=== PATIENT | female | born 1955 | race African-American/Black ===

== ENCOUNTER → 2017-01-21 | Outpatient (CLI) | payer MEDICARE, OTHER ==
[~2017-01-21] MED LIST: AMLO10TA2 PO; AMLO5 PO; ASPI-110 PO; ASPI81 PO; CILO100T PO; CYCL1PAK PO; CYCL1TAB29 PO; GABA300C3 PO; GLUCTAB PO; LISI-363 PO; LISI-515 PO; METF500T PO; METO25 PO; METO25TA3 PO; PRAV40 PO; PRAV40TA2 PO; TRAM50 PO
[2017-01-21 10:20] LABS: ALT (GPT) 11 U/L (10-53); AST (GOT) 12 U/L (15-37)
[2017-01-21 10:22] LABS: HDL CHOLESTEROL 39.9 MG/DL (40.0-60.0); LDL CHOLESTEROL 121 MG/DL (0-99)
[2017-01-21 16:35] LABS: HEMOGLOBIN A1b 2.4 %; HEMOGLOBIN Ao 81.5 %; HEMOGLOBIN LA1C 2.3 %; HEMOGLOBIN P3 4.3 %
== END ==
LOC: CLAB 09:30
PROVIDERS: ATTEND Internal Medicine Interventional Cardiology
DX: E78.5 Hyperlipidemia, unspecified (principal); I10 Essential (primary) hypertension; I25.10 Atherosclerotic heart disease of native coronary artery without angina pectoris; Z79.899 Other long term (current) drug therapy
CPT/HCPCS: 36415; 80061; 83036; 84450; 84460

== ENCOUNTER → 2017-07-06 | Outpatient (CLI) | payer MEDICARE, MEDICAID ==
[~2017-07-06] MED LIST changes: -AMLO5 PO; -ASPI81 PO; -CYCL1PAK PO; -GABA300C3 PO; -GLUCTAB PO; -LISI-363 PO; -METO25 PO; -PRAV40 PO; -TRAM50 PO
[2017-07-06 10:37] LABS: HDL CHOLESTEROL 35.1 MG/DL (40.0-60.0)
== END ==
LOC: CLAB 09:40
PROVIDERS: ATTEND Family Medicine
DX: E78.2 Mixed hyperlipidemia (principal)
CPT/HCPCS: 36415; 80061